=== PATIENT | male | born 1985 | race Caucasian/White ===

== ENCOUNTER 2016-07-11 18:01 | Emergency (ER) | payer OTHER ==
[~2016-07-11] VITALS: Ht 172.7 cm; Wt 86.2 kg
[2016-07-11] MEDS ORDERED: Lidocaine/Epi 1% 10ml vial INJ ONE (18:15)
[2016-07-11] MEDS ORDERED: TdaP Vaccine 0.5ml Syr IM ONE (18:15)
[2016-07-11] MEDS ORDERED: Lidocaine 1% 10mg/ml/Epi 0.005mg/ml 30ml vial INJ ONE (18:15)
--- NOTE | 2016-07-11 18:33 | Emergency Room Report ---
History of Present Illness General Chief Complaint: Laceration Source: Patient Present Illness HPI Patient comes in complaining of injury to right elbow 4 hours ago. Says that he cut himself on glass. States that they was able to stop bleeding with direct pressure but then started to have swelling that developed over the next one hour. States that he would've come in had it not been for the swelling. His tetanus status not up-to-date. Patient denies any numbness, tingling, pressure, paralysis, cyanosis, bruising, loss of sensation, or loss of range of motion. Allergies: Coded Allergies: No Known Allergies (Unverified , 07/11/16) Patient History Past Medical History: see triage record Pertinent Family History: none Immunizations: other - TDap not UTD Reviewed Nursing Documentation: PMH: Agreed, PSxH: Agreed Nursing Documentation-PMH Past Medical History: No Stated History Review of Systems All Other Systems: negative except mentioned in HPI Physical Exam Vital Signs Date Time Temp Pulse Resp B/P Pulse Ox O2 Delivery O2 Flow Rate FiO2 07/11/16 18:07 98.2 100 16 141/74 99 Room Air Sp02 EP Interpretation: reviewed, normal General Appearance: no apparent distress, alert, GCS 15, non-toxic Head: normocephalic, atraumatic Eyes: bilateral eye PERRL, bilateral eye normal inspection ENT: normal ENT inspection Neck: normal inspection Respiratory: chest non-tender, lungs clear, normal breath sounds, speaking full sentences Cardiovascular #1: regular rate, rhythm, no edema, normal capillary refill Cardiovascular #2: 2+ radial (R), 2+ radial (L) Musculoskeletal: back normal, gait/station normal, normal range of motion, non- tender Neurologic: alert, oriented x3, responsive, motor strength/tone normal, sensory intact, speech normal Skin: normal color, no rash, warm/dry, well hydrated, laceration - 4cm lateral right elbow, complex with coagulated blood in gaping wound Lymphatic: no adenopathy Procedures Laceration/Wound Repair Laceration/Wound Repair : Consent: Verbal Wound Location: upper extremity - right elbow Wound Explored: removed moderate sized coagulated blood from wound. Irrigated w/ Saline (ccs): 500 Betadine Prep?: Yes Anesthesia: Lidocaine w/ Epi Wound Debrided: minimal Wound Repaired With: sutures Suture Size/Type: 4:0, nylon Number of Sutures: 8 Layer Closure?: Yes Deep Layer Suture Size/Type: 4:0, other - vicryl Patient Tolerated: Well Complications: None Medical Decision Making PA Attestation Dr. Brunner is my supervising physician with whom patient management has been discussed with. Diagnostic Impression: Primary Impression: Laceration of right elbow without foreign body Qualified Codes: S51.011A - Laceration without foreign body of right elbow, initial encounter ER Course Pt. presents to the ED c/o laceration Ddx considered but are not limited to laceration, fracture, contusion, abrasion , foreign body, cellulitis, abscess Vital signs: are WNL, pt. is afebrile H&PE are most consistent with laceration ORDERS: XR, Lac Tray, Sutures, Lidocaine ED INTERVENTIONS: Laceration repair, TDap DISCHARGE: At this time pt. is stable for d/c to home. Will provide printed patient care instructions, and any necessary prescriptions. Care plan and follow up instructions have been discussed with the patient prior to discharge. Other X-Ray Diagnostic Results Other X-Ray Diagnostic Results : Date: Jul 11, 2016 EP Interpretation: Yes Findings: no fractures, no dislocation, other - no foreign body Number of Views: 3 Other Impression No Fx, dislocation or FB Last Vital Signs Date Time Temp Pulse Resp B/P Pulse Ox O2 Delivery O2 Flow Rate FiO2 07/11/16 18:07 98.2 100 16 141/74 99 Room Air Status: improved Disposition: HOME, SELF-CARE Condition: Stable Scripts Cephalexin* (KEFLEX*) 500 Mg Capsule 500 MG ORAL EVERY 12 HOURS, #14 CAP 0 Refills Prov: SANTOANNMARIEANTHONY P.A. 07/11/16 Patient Instructions: Laceration Care, Adult Additional Instructions: Keep wound clean and dry. Avoid sun exposure to minimize scarring. Patient advised that they can take a shower or bath, but be sure to pat the area dry with a towel afterward.Take medication as directed. Patient instructed to take ibuprofen and tylenol as needed for pain. Patient to return for wound check in 2 -3 days either here, urgent care or with PCP. Advised patient to keep site of infection elevated above the level of their heart 3 or 4 times a day, for 30 minutes each time to help reduce swelling. Patient is to keep the infected area clean and dry. They can take a shower or bath, but be sure to pat the area dry with a towel afterward. Patient instructed to not put any antibiotic ointments or creams on the area. Patient should come back sooner if their symptoms do not get better within 3 days of starting treatment or if the red area gets bigger, more swollen, or more painful. ANTHONY GARCIA Jul 11, 2016 18:33
[2016-07-11] MEDS ORDERED: CEPHALEXIN500 MG ORAL (19:26)
[2016-07-11 19:36] VITALS: BP 123/88
--- NOTE | 2016-07-12 11:18 | Diagnostic Imaging Report ---
Indications:TRAUMA Technique: Three or 4 views of the right elbow Comparison: None Findings:No acute fractures. No dislocations. No joint space narrowing. No effusion. There is a soft tissue defect involving the dorsal soft tissues adjacent to the acromion. No associated radiopaque foreign body Impression:No acute bony trauma. Dorsal soft tissue abnormality, should be evident clinically Negative for foreign body This agrees with the preliminary interpretation provided by the emergency room physician
== END 2016-07-11 20:00 | disposition home or self-care (01) ==
LOC: EMR 19:40
DX: S51.011A Laceration without foreign body of right elbow, initial encounter (principal); Z23 Encounter for immunization; W25.XXXA Contact with sharp glass, initial encounter; Y93.9 Activity, unspecified; Y92.9 Unspecified place or not applicable
CPT/HCPCS: 90471; 90715